=== PATIENT | female | born 1965 | race Caucasian/White ===

== ENCOUNTER → 2018-07-02 | Outpatient (CLI) | payer BC ==
--- NOTE | 2018-07-02 15:08 | CT ---
EXAM DESCRIPTION: Abdomen/Pelvis w/wo Contrast: Computed Tomography. CLINICAL HISTORY: ABD PAIN COMPARISON: None. TECHNIQUE: Spiral-axial scans at 5 x 5 mm intervals through the abdomen and pelvis before and after nonionic IV contrast. No oral contrast. Coronal and sagittal 2 x 2 mm reconstructions. 5 mm Delayed helical-axial scans, liver through the pubic symphysis. No adverse reactions. Total Exam DLP 2430.04 mGy - cm. This exam was performed according to our departmental CT dose-optimization program which includes automated exposure control, adjustment of the mA and/or kV according to patient size and/or use of iterative reconstruction technique; to reduce radiation dose to as low as reasonably achievable (ALARA). FINDINGS: Lung bases and pleura: Negative. Bilateral saline breast implants are partially visualized. Minimal calcification in the inferior right coronary artery. Liver, Stomach, Spleen, Adrenal Glands: Probable cyst inferior tip of right lobe of the liver. Too small to the resolved by CT. Other smaller focal regions of enhancement in the superior aspect of the left liver near the dome. Stomach and other solid organs are negative. Pancreas, Gallbladder, Ducts: Small density in the superior gallbladder near the neck and possibly radiolucent gallstones are debris. Duct is unremarkable. Pancreas is negative. Kidneys and Ureters: Unremarkable. Mesentery: Negative. Aorta: Minimal atherosclerotic calcification distally with possible narrowing of the distal lumen above the bifurcation. Small Bowel: Minimal distention of some segments of the small bowel in the lower midline abdomen. Terminal Ileum/Cecum: Normal caliber. Appendix visualized also normal caliber. Normal density of the surrounding fat. Colon: Moderately redundant sigmoid colon. Decompression of the distal colon. Minimal fecal material in the ascending and proximal transverse colon. Pelvic Organs: Uterus is retroflexed/retroverted. Bilateral ovaries are visualized. Bilateral tubal ligation clips are noted. No fluid in the cul-de-sac. Minimal fluid or thickening of the endocervix with minimal heterogeneity of the gilmore. Spine and Bony Pelvis: Unremarkable. Abdominal Wall/Back Soft Tissues: Negative. IMPRESSION: 1. Probable cyst in the inferior tip of the right liver and smaller nonenhancing object in the superior left lobe. Liver otherwise unremarkable. 2. Possible gravel sludge or non radiodense stones in the gallbladder. Duct and pancreas negative. Consider ultrasound of the right upper quadrant of the abdomen. 3. Retroverted or retroflexed uterus. Endometrial or endocervical thickening or fluid. No fluid in the cul-de-sac. Minimal redundancy of the sigmoid colon. Mild proximal colonic constipation. 4. No free fluid or free air. No inflammatory changes in the fat or fascial. Atherosclerotic changes in the aorta. Electronically signed by: Terrell Sosa MD 07/02/2018 3:06 PM CDT
== END ==
LOC: YCFC.O 13:13
PROVIDERS: ATTEND Family Medicine
DX: K59.00 Constipation, unspecified (principal); I70.0 Atherosclerosis of aorta; N85.4 Malposition of uterus; R10.9 Unspecified abdominal pain

== ENCOUNTER → 2018-12-04 | Outpatient (CLI) | payer BC ==
--- NOTE | 2018-12-09 16:20 | MAM ---
EXAM DESCRIPTION: 3D Screening BILATERAL : Digital Mammography. CLINICAL HISTORY: 53 years Female SCREENING . No complaints. No personal or family history of breast cancer. Childbirth. Hysterectomy one year ago. Currently on HRT. Bilateral breast augmentation. Lifetime risk of developing breast cancer (Tyrer-Cuzick model)(%): 6.1. COMPARISON: Baseline study at this facility.. No prior reports available. TECHNIQUE: Bilateral CC and MLO projection full-field images, with Mark Implant Displacement digital tomosynthesis mammographic technique. Bilateral 2-D digital full-field images, MLO and CC projections, non-displaced. CAD Bilateral digital 2-D full-field MLO images. CAD not available for tomosynthesis or 2-D images. FINDINGS: The breast parenchymal density pattern is: Heterogeneously dense breast tissue, which may obscure small masses. No skin thickening or nipple retraction. Masslike density at the 9:00 position of the right breast 2 cm from the nipple associated with small calcifications and possibly other mass densities. Also possible mass densities and calcifications inferior to the posterior nipple line and medial within 3 cm of the nipple. Diffuse microcalcifications within the fibroglandular tissues of the left breast. Small mass densities in the retroareolar left breast and middle third. Larger mass density with partially circumscribed margins at the 3:00 position of the posterior third of the left breast 5 cm from the nipple. In the axillary tail of the left breast is a partially circumscribed mass density with central calcification. Bilateral retromuscular saline implants with margins intact where seen. Bilateral axillary lymph nodes. IMPRESSION: BI-RADS CATEGORY: 0 - INCOMPLETE- Need additional imaging evaluation. FOLLOW-UP: Recall for additional imaging: Bilateral orthogonal full-field tomosynthesis. Also bilateral targeted breast ultrasound of the regions of interest.. Written communication concerning the IMPRESSION and Follow-up, will be mailed to the patient and referring health care provider. Electronically signed by: Terrell Sosa MD 12/09/2018 4:17 PM CDT
== END ==
LOC: LAB.O 16:27
PROVIDERS: ATTEND Family Medicine
DX: Z12.31 Encounter for screening mammogram for malignant neoplasm of breast (principal); E78.5 Hyperlipidemia, unspecified; R53.83 Other fatigue; Z79.899 Other long term (current) drug therapy

== ENCOUNTER → 2018-12-23 | Outpatient (CLI) | payer BC ==
--- NOTE | 2018-12-24 11:34 | US ---
EXAM DESCRIPTION: Diagnostic Mammo,Bilateral (accession [id number]), Breast,Bilateral (accession [id number]): Ultrasound CLINICAL HISTORY: 53 yearsFemaleABNORMAL DX MAMMO IMAGES. Bilateral mass densities and microcalcifications. COMPARISON: Bilateral screening digital breast tomosynthesis 12/04/2018. Bilateral targeted breast ultrasound included with this examination. TECHNIQUE: Transcutaneous scanning of the bilateral breasts utilizing arrieta-scale and Doppler modes. Scanning performed by the personal financial advisor and Dr. Sosa. Bilateral LM projection full-field images, with Mark implant displacement, digital mammographic tomosynthesis technique. Bilateral 2-D spot impression in the CC and LM projections with implant displacement. CAD not utilized. FINDINGS: The breast parenchymal density pattern is: Heterogeneously dense breast tissue, which may obscure small masses. No skin thickening or nipple retraction again noted are large mass densities posteriorly and bilaterally in the breasts abutting the posterior nipple line and slightly lateral to the line. There are also mass densities in the lateral aspect of both breasts, as well as in the upper outer quadrants of both breasts. No suspicious microcalcifications. Ultrasound: Scanning of the right breast from the 7:00 sector to the 1:00 sector. Heterogeneous fatty and fibroglandular elements combined. 9.8 x 2.3 x 9.0 mm lymph node or complicated cyst at 7:00 2 cm from the nipple. Nonvascular. Enhanced posterior sound transmission and wider than tall. Smaller lymph node 2.6 mm anterior to this. At the 9:30 clock position 8 cm from the nipple are 2 anechoic cysts with circumscribed margins enhance posterior acoustics and wider than tall orientation. These cysts measure approximately 5 to 6 mm diameter. A third cyst in the nearby soft tissues with same imaging characteristics measures approximately 7 mm. There is also a elongated cyst measuring 11 x 9 x 2 mm abutting the capsule in the same region with wider than tall orientation circumscribed margins and posterior acoustic enhancement. 3 cm from the nipple at the 10:00 sector is a solid mass with anterior circumscribed margin measuring 2.7 cm greatest diameter, 2.4 cm orthogonal measurement. Labeled nodule A. Extremely dense mid and posterior aspect with acoustic shadowing extending to the implant capsule. Wider than tall orientation and Nonvascular. Lateral and inferior to this larger mass is a smaller solid mass measuring 7.9 x 6.4 with 75% circumscribed margin, wider than tall orientation, and no vascularity, and partial posterior shadowing. Labeled nodule B. Same region another solid nodule medial to the large mass measuring 7.2 x 7.8 x 6.8 mm. Partial posterior acoustic enhancement, wider than tall orientation and approximately 75% circumscribed margin, not vascular. Labeled nodule C. At the 12:00 retroareolar breast is a solid mass with partially circumscribed and partially ill-defined margins measuring 7.6 x 6.1 x 8.9 mm, not vascular, wider than tall orientation with posterior acoustic enhancement. Labeled nodule D. At 1:00 retroareolar position is a 7.9 x 7.5 x 5.6 mm nodule greater than 75% circumscribed, parallel orientation, nonvascular with mixed posterior shadowing and acoustic enhancement. Labeled nodule E. Scanning of the left breast from the 12:00 to the 6:00 sectors. Mixture of fibroglandular and fatty echotexture. 12:00 sector retroareolar breast is a solid nodule with mostly circumscribed and partially microlobulated margins heterogeneous internal echoes measuring 7.0 x 6.2 x 5.5 mm, nonvascular with predominantly posterior acoustic enhancement wider than tall orientation. Labeled nodule F. Anechoic circumscribed cyst with posterior acoustic enhancement not vascular and wider than tall orientation at the 12:00 retroareolar position abutting the aforementioned nodule. A second cyst with similar imaging characteristics measuring 5.4 x 5.4 x 4.0 mm slightly more posterior. At the 1:00 sector 5 cm from the nipple to anechoic masses with circumscribed margins wider than tall orientation, and no vascularity, and posterior acoustic enhancement measuring 6 mm and 7.6 mm. Round solid nodule at the 2:00 sector 5 cm from the nipple with no particular orientation circumscribed margins nonvascular and posterior acoustic enhancement predominates. 8.5 x 8.7 mm. Labeled nodule G. Adjacent to this nodule is a large nodule measuring 1.9 x 1.6 x 2.1 cm with greater than 75% circumscribed margins, no vascularity, predominantly posterior acoustic enhancement. It shadowing is present. Labeled nodule H. In the 3:00 sector 7 cm from the nipple is a solid nodule measuring 6.2 x 5.5 x 5.3 mm with wider than tall orientation, predominantly posterior acoustic enhancement, no vascularity, and greater than 75% circumscribed margins. It is adjacent to the capsule. Labeled nodule I. In the 6:00 sector 6 cm from the nipple and abutting the capsule is a mostly anechoic structure with circumscribed margins, wider than tall orientation, and no vascularity, and predominantly posterior acoustic enhancement. Dimensions are 4.7 x 4.4 x 4.3 mm and this is most likely a cyst. 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 However, the ultrasound appearance of nodule A, nodule B, and nodule D in the right breast is concerning. The size of nodule H in the left breast is also concerning, more than the appearance. Bilateral cysts are also noted. ASSESSMENT: BI-RADS CATEGORY 4: SUSPICIOUS. SUB-CATEGORY 4A - LOW SUSPICION FOR MALIGNANCY. Surgical consultation and tissue diagnosis should be considered. The FINDINGS and FOLLOW-UP plan were reviewed in person with the patient following the examination. Written communication explaining the IMPRESSION and FOLLOW-UP will be mailed to the patient and referring care provider. . CRITICAL COMMUNICATION: The critical value was discussed directly in person with Dr. Joseph Leonard at approximately 1320 hours, on December 23, 2018. Electronically signed by: Terrell Sosa MD 12/24/2018 11:30 AM CDT
== END ==
LOC: US 10:06
PROVIDERS: ATTEND Family Medicine
DX: R92.8 Other abnormal and inconclusive findings on diagnostic imaging of breast (principal)

== ENCOUNTER → 2019-01-30 | Outpatient (CLI) | payer BC ==
--- NOTE | 2019-01-30 13:50 | OP ---
DATE OF PROCEDURE: 01/30/19 PREOPERATIVE DIAGNOSIS: 1. Abnormal bilateral mammogram with solid masses. POSTOPERATIVE DIAGNOSIS: 1. Abnormal bilateral mammogram with solid masses. PROCEDURE: 1. Sonographically guided needle core biopsy, right breast times 3. 2. Sonographically guided needle core biopsy, left breast times 1. SURGEON: Himanshu Roy MD. MOSHGIACH: None. ANESTHESIA: Local infiltration of 1% lidocaine. INDICATION: The patient is a 54-year-old female who has undergone mastopexy and augmentation who on mammography was found to have multiple masses in both breasts. It was decided four of these should be biopsied and this was done. They had some irregularities to size, they were solid, had some irregularities to margins and had some shadowing. FINDINGS: The right breast lesions that were biopsied were two at 10 o'clock, one more lateral which was marked Nodule B. Nodule A was at 10 o'clock in the right breast and more medial. Nodule D was retroareolar at 12 o'clock. The left breast lesion was at 2 o'clock. PROCEDURE: After the patient was placed in the supine position in the Ultrasound Suite, the right breast was examined and the lesions were identified. The breast medial and superior to the ultrasound probe was prepped with Betadine and draped with sterile towels. Local infiltration of anesthesia was obtained. A stab wound was then made with a 15 blade and then the tissue between the mass and the skin incision was infiltrated with local anesthesia. Then using the biopsy needle, multiple passes were made, first through Nodule B, then Nodule A at the 10 o'clock position. When this was done and hemostasis was noted to be adequate and the specimens were noted to be adequate, then the nodule at the 12 o'clock position was likewise identified. The tissue was infiltrated and then specimens were taken. Hemostasis was obtained with pressure and then a single suture of 4-0 Nylon. The stab wound was covered with a sterile sponge and the left breast was inspected. The same situation, the lesion was identified. The breast superior and medial to the ultrasound probe was prepped with Betadine and the breast was draped. Local infiltration of anesthesia was obtained. A stab wound was made with a 15 blade and multiple passes were made through the mass using a new biopsy needle. Hemostasis was noted to be adequate. The skin edges were approximated with a single 4-0 Nylon simple suture. The breasts were cleaned. They were dressed with a pressure dressing. The patient tolerated the procedure well and was discharged home. Estimated blood loss less than 10 mL. Specimens were sent for pathological evaluation. #[id number] MTDD
--- NOTE | 2019-01-30 20:27 | US ---
EXAM DESCRIPTION: Biopsy/Needle Guidance: Ultrasound. CLINICAL HISTORY: 54 years Female ABNORMAL MAMMO NODULE A. 3 other nodules were also biopsied on this visit. COMPARISON: Diagnostic ultrasound of the right breast on 12/23/2018. TECHNIQUE: The procedure was performed by Dr. Roy. Repeat ultrasound localized the mass at the 10:00 position of the right breast 3 cm from the nipple.. Sterile preparation. Sterile ultrasound guidance during needle passes. FINDINGS: The mass was well demonstrated prior to the procedure. Hypoechoic mass marked posterior shadowing. Designated as nodule A. Nodule dimensions approximately 2.4 x 1.5 cm. Multiple images demonstrate the echogenic needle passing through the mass. IMPRESSION: Successful, ultrasound-guided, needle core biopsy nodule in the right breast designated nodule A. Adequate core samples were obtained. Pathology examination at remote facility, results pending. Electronically signed by: Terrell Sosa MD 01/30/2019 8:25 PM CDT
--- NOTE | 2019-01-30 20:35 | US ---
EXAM DESCRIPTION: Biopsy/Needle Guidance: Ultrasound. CLINICAL HISTORY: 54 years Female ABNORMAL MAMMO NODULE B. 3 additional nodules also biopsied at this visit. COMPARISON: Diagnostic ultrasound of the right breast on December 23, 2018. TECHNIQUE: The procedure was performed by Dr. Roy. Repeat ultrasound localized nodule designated B at the 10:00 position of the right breast 3 cm from the nipple.. Sterile preparation. Sterile ultrasound guidance during needle passes. FINDINGS: Nodule B was visualized prior to the procedure. Measures approximately 1.1 cm greatest diameter. Lobulated capsule, hypoechoic, with prominent posterior shadowing. Multiple images during the procedure demonstrate the echogenic needle passing through the nodule. IMPRESSION: Successful, ultrasound-guided, core needle biopsy of nodule designated B. Adequate core samples were obtained. Pathology examination at remote facility, results pending. Electronically signed by: Terrell Sosa MD 01/30/2019 8:33 PM CDT
--- NOTE | 2019-01-30 20:52 | US ---
EXAM DESCRIPTION: Biopsy/Needle Guidance: Ultrasound. CLINICAL HISTORY: 54 years Female ABNORMAL MAMMO NODULE H COMPARISON: Diagnostic ultrasound of the left breast on 12/23/2018. TECHNIQUE: The procedure was performed by Dr. Roy. Repeat ultrasound localized the mass designated nodule H at the 2:00 position of the left breast 5 cm from the nipple.. Sterile preparation. Sterile ultrasound guidance during needle passes. FINDINGS: Preliminary scans prior to the procedure show nodule age minimal lobulation of the anterior margin is well-defined. The mass is hypoechoic measuring approximately 2.2 cm x 1.7 cm. Prominent posterior shadowing. Abutting the implant. Multiple images during procedure show the echogenic needle passing through the mass. IMPRESSION: Successful, ultrasound-guided, needle core biopsy of mass designated nodule H in the left breast. Adequate core samples were obtained. Pathology examination at remote facility, results pending. Electronically signed by: Terrell Sosa MD 01/30/2019 8:50 PM CDT
--- NOTE | 2019-01-30 20:54 | US ---
EXAM DESCRIPTION: Biopsy/Needle Guidance: Ultrasound. CLINICAL HISTORY: 54 years Female ABNORMAL MAMMO NODULE D. Ultrasound-guided needle core biopsy performed of 3 other masses on this visit. COMPARISON: Diagnostic ultrasound of the right breast on 12/23/2018. TECHNIQUE: The procedure was performed by Dr. Roy. Repeat ultrasound localized the lesion designated nodule D at the 12:00 position of the right breast retroareolar. Sterile preparation. Sterile ultrasound guidance during needle passes. FINDINGS: Preliminary images prior to the procedure showed nodule D as mostly hypoechoic measuring approximately 7 x 6 mm in diameter with prominent posterior shadowing. Multiple images during the procedure show the echogenic needle passing through the nodule. IMPRESSION: Successful, ultrasound-guided needle core biopsy of right breast nodule designated nodule D. Adequate core samples were obtained. Pathology examination at remote facility, results pending. Electronically signed by: Terrell Sosa MD 01/30/2019 8:52 PM CDT
== END ==
LOC: US 10:49
PROVIDERS: ATTEND Surgery
DX: R92.8 Other abnormal and inconclusive findings on diagnostic imaging of breast (principal); N64.1 Fat necrosis of breast

== ENCOUNTER → 2020-04-05 | Outpatient (CLI) | payer BC ==
--- NOTE | 2020-04-05 15:45 | RAD ---
EXAM DESCRIPTION: Chest,2 Views CLINICAL HISTORY: COUGH COMPARISON: None TECHNIQUE: PA/lateral FINDINGS: There is no acute appearing cardiac or pulmonary abnormality. Heart size is normal with normal pulmonary vascularity. No pleural effusion or pneumothorax. Lungs are clear with no consolidating infiltrate. Lateral view shows intact sternum and T-spine. IMPRESSION: No acute process is identified in the chest. Electronically signed by: Dayday Castro MD 04/05/2020 3:43 PM CDT
== END ==
LOC: YCFC.O 10:59
PROVIDERS: ATTEND Family Medicine
DX: R05 Cough (principal); Z03.818 Encounter for observation for suspected exposure to other biological agents ruled out